=== PATIENT | male | born 1990 | race Caucasian/White ===

== ENCOUNTER 2024-09-17 10:02 | Outpatient (AMB) | payer OTHER, SELFPAY ==
--- NOTE | 2024-09-17 10:39 | AM.OFFWIN_ITS ---
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 - Pain initiated in the lower thigh and has progressively descended to the ankle and is now affecting the foot; associated with a sensation of tightness and swelling more prominent on the left side, decreasing the visibility of the ankle bones. - Complete absence of trauma or discolor ation noted; mobility of the ankle is unaffected. - Professional requirements involve exte nsive driving, limiting physical activity, and a recent drive to/from [place] which potentially contributes to venous stasis. - No systemic symptoms reported; denies shortness of breath or hemoptysis. - Denies hx of recent surgery or trauma, cancer, smoking, prior DVT or PE, long plane flights. - No significant family history of throm bosis discussed except a paternal history of myocardial infarction. - Initial suspicion led to a plan for ul trasound imaging to evaluate for deep vein thrombosis due to high risk associated with prolonged immobility. Physical Exam General: Cooperative, healthy appearing, comfortable, no acute distress and well developed Orientation: Patient oriented x3 Limitations: No limitations Head: Normal to inspection Ears: Hearing grossly normal bilaterally Nose: Normal external nose present Face and sinus: Normal facial exam Eyes: Appearance normal, both eyes and all related structures Neck: Normal visual inspection and Yes full ROM Respiratory: Normal respiratory effort and able to speak in complete sentences. Clear to auscultation bilaterally Cardiovascular: Regular rate and rhythm. Normal S1 and S2 Skin: No rashes or lesions noted, no discoloration Neuro: Patient oriented x3 Extremities: Left ankle slightl edema,negative Homans left leg, normal to inspection, full ROM left leg, right leg normal to inspection and full rOM PFSH Social History Patient Tobacco Use Status: Never used Tobacco Review of Systems Const All systems reviewed & are unremarkable except as noted in HPI and below Physical Exam Vital Signs: Last Vital Signs Temp 98.1 F 09/17/24 10:40 Pulse 82 09/17/24 10:40 BP 138/92 H 09/17/24 10:40 Pulse Ox 98 09/17/24 10:40 Oxygen Delivery Method Room Air 09/17/24 10:40 BMI result Body Mass Index 31.9 Assessment & Plan Assessment & Plan (1) Leg pain, left: Code(s): M79.605 - Pain in left leg Plan: Plan The management plan primarily emphasizes diagnosing a possible deep vein thrombosis by obtaining an urgent ultrasound of the affected limb. The examination will provide crucial information to either confirm or exclude the presence of a thrombus considering the patient's prolonged sitting intervals and reported symptoms. Should the ultrasound verify a thrombus, anticoagulant therapy might be initiated. Immediate intervention hinges on initial test results and subsequent consultations if DVT is diagnosed. Furthermore, patient education regarding potential risks associated with prolonged immobilization derived from occupational demands was implicitly addressed through the chosen imaging strategy. Ultrasound is negative for DVT, recommended if swelling continues over the next 3-4 weeks, he should follow up with his PCP. Slight chance he may have twisted his ankle without realizing it and he just needs some more time to recover, recommended rest and ice and ibuprofen. Patient was informed and verbally consented to the use of an ambient scribe for clinic note documentation during this visit. Orders: Orders US venous duplex LE LT Today M79.605 - Pain in left leg Coding Level of Care Code Est Pt Level 5 (51902) Diagnoses Leg pain, left M79.605
[2024-09-17 10:40] VITALS: BP 138/92; PULSE 82; TEMP 36.7; O2SAT 98; BMI 31.9
== END 2024-09-17 11:32 | disposition home or self-care (01) ==
PROVIDERS: Visit Provider Physician Assistant
DX: M79.605 Pain in left leg (principal)

== ENCOUNTER 2024-09-17 10:55 | Outpatient (REF) | payer OTHER, SELFPAY ==
--- NOTE | ~2024-09-17 | US_ITS ---
EXAMINATION: US LOWER EXTREMITY VEINS LIMITED FOLLOW UP LEFT HISTORY: M79.605 - Pain in left leg - r/o dvt COMPARISON: There are no prior studies for comparison. TECHNIQUE: Duplex and color Doppler sonographic examination of the deep venous system of the left lower extremity was performed. FINDINGS: The common femoral, superficial femoral, and popliteal veins are patent demonstrating normal compressibility, spontaneous flow, and augmentation. There is a normal color and spectral Doppler waveform appearance of the visualized deep venous system above the knee. The posterior tibial and peroneal veins are patent. US/US venous duplex LE LT IMPRESSION: No evidence of acute DVT in the left lower extremity. Electronically signed by: Wong Blackman MD 09/17/2024 11:29 AM [facility]
== END 2024-09-17 10:56 | disposition home or self-care (01) ==
LOC: HO.HMGCX 10:55
PROVIDERS: PCP Family Medicine; Visit Provider Physician Assistant
DX: M79.605 Pain in left leg (principal); M79.89 Other specified soft tissue disorders
CPT/HCPCS: 93971

== ENCOUNTER → 2024-09-17 11:03 | Outpatient (BNV) | payer OTHER, SELFPAY | PROVIDERS: PCP Family Medicine; Visit Provider Radiology Diagnostic Radiology | DX: M79.605 Pain in left leg (principal) | CPT/HCPCS: 93971 ==

== ENCOUNTER 2025-02-28 10:57 | Outpatient (AMB) | payer OTHER, SELFPAY ==
--- NOTE | 2025-02-28 11:15 | A.OFFPC_ITS ---
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 ?? Prior PCP:? Rachel Last office visit/CPE:?8 yrs Acute issue(s):? Recent?ED?visit?for?chest?pain. Ruled?out?for?ACS. Did?find?significant?anemia?with?hemoglobin?8.9. Had?had?recent?influenza?and?chest?x-ray?showed?possible?lingular?pneumonia vs scarring. Hemmorhoids - bleedig ?? PMHx:??Influenza, pneumonia, Anemia, Hemmorhoids - have bled in past. Partial Pneumothorax. SurgHx:?Appendectomy FHx:? dad: CAD & [place] age 60HTN, HLD. Brother: Anemia, HLD. Mom: Healthy. Uncle: Prostate CA SocHx:? 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 1. Little interest or pleasure in doing things: not at all 2. Feeling down, depressed, or hopeless: not at all 3. Trouble falling or staying asleep, or sleeping too much: not at all 4. Feeling tired or having little energy: several days 5. Poor appetite or overeating: several days 6. Feeling bad about yourself - or that you are a failure or have let yourself or your family down: not at all 7. Trouble concentrating on things, such as reading the newspaper or watching television: not at all 8. Moving or speaking so slowly that other people could have noticed. Or the opposite - being so fidgety or restless that you have been moving around a lot more than usual: not at all 9. Thoughts that you would be better off or of hurting yourself in some way: not at all Total score: 2 Depression Screening Interpretation: Negative Depression Screening Done: Yes 49780 - PHQ-9 Billing: Yes Source: Developed by Drs. Wong Davidson, Bernadette Kelly, Maximilian Gonzalez and colleagues, with an educational suman from [employer]. Thrive Questionnaire Date Thrive assessed: 02/28/25 I am a: Patient What is your living situation today?: I have a steady place to live Within the past 12 months, did the food you bought not last and you didn't have the money to get more?: Never true Within the past 12 months, did you worry whether your food would run out before you got money to buy more?: Never true Do you have trouble paying for medicines?: No Do you have trouble getting transportation to medical appointments?: No Do you have trouble paying your heating and electricity bill?: No Do you have trouble taking care of your child, family member or friend?: No Do you have trouble with day-to-day activities such as bathing, preparing meals, shopping, managing finances, etc.?: No Are you currently unemployed and looking for a job?: No Are you interested in more education?: Yes Please select the resources that you would like help with: None Currently or been in a relationship where the following occur: No concerns reported THRIVE Score: 0 AUDIT C Alcohol Use Questionnaire (AUDIT-C) 1. How often do you have a drink containing alcohol?: Monthly or less 2. How many drinks containing alcohol do you have on a typical day when you are drinking?: 1 or 2 3. How often do you have six or more drinks on one occasion?: Never Total Score: 1 Score Reviewed/Action Taken: Yes SHERRY-7 AMB Questionnaire SHERRY-7 Date SHERRY - 7 assessed: 02/28/25 Feeling nervous, anxious, or on edge: 1 = Several days Not being able to stop or control worryin = Several days Worrying too much about different things: 1 = Several days Trouble relaxin = Not at all Being so restless that it is hard to sit still: 0 = Not at all Becoming easily annoyed or irritable: 0 = Not at all Feeling afraid as if something awful might happen: 0 = Not at all Total SHERRY-7 score (0-4 normal; 5-9 mild; 10-14 moderate; 15-21 severe): 3 Source: Developed by Drs. Wong Davidson, Bernadette Kelly, Maximilian Gonzalez and colleagues, with an educational suman from [employer]. SHERRY-7 Assessment Billing SHERRY-7 Assessment Tool: SHERRY-7 Assessment 68060 Review of Systems Const Denies chills, Denies fatigue, Denies fever(s), Denies headache(s) and Denies weakness ENT Denies dizziness and Denies headache(s) Card Denies chest pain, Denies lightheadedness, Denies dyspnea and Denies other (Palp itations) Resp Denies cough, Denies dyspnea, Denies wheezing and Denies other ( shortness of breath) Musc Denies numbness and Denies tingling Neuro Denies dizziness, Denies headache(s), Denies numbness, Denies tingling, Denies paresthesias and Denies weakness Psych Denies anxiety and Denies depression Endo Denies fatigue Aller/Immun Denies wheezing Physical exam (Primary Care) Vital Signs: Last Vital Signs Temp 98.3 F 02/28/25 11:24 Pulse 78 02/28/25 11:24 Resp 14 02/28/25 11:24 BP 120/80 02/28/25 11:24 Pulse Ox 96 02/28/25 11:24 Oxygen Delivery Method Room Air 02/28/25 11:24 BMI result Body Mass Index 31.0 Tobacco/Smoking Status: Tobacco use Status Tobacco use date assessed 02/28/25 02/28/25 11:23 Patient Tobacco Use Status Never used Tobacco 02/28/25 11:23 e-Cigarette/Vaping Use Never Used 02/28/25 11:23 PHQ-9: PHQ-9 Score PHQ-9: Total score 2 02/28/25 11:23 Depression Screening Interpretation: Negative Thrive Assessment: Date of Thrive Assessment Date Thrive assessed 02/28/25 02/28/25 11:23 Currently or been in a relationship where the following occur: No concerns reported Const General: no acute distress and well developed Nutritional Appearance: well nourished Orientation/consciousness: patient oriented x3 HENMT Head: Yes normocephalic and Yes atraumatic Eyes General: appearance normal, both eyes and all related structures Pupils: Equal, round and reactive pupils present EOM: EOMs intact bilaterally Resp Effort & Inspection: normal respiratory effort Auscultation: clear to auscultation bilaterally Cardio Rate: regular rate Rhythm: regular rhythm Heart sounds: S1 normal heart sound present, S2 normal heart sound present, no gallops, no murmurs and no rubs Neuro General: patient oriented x3 and gait normal Cranial nerves: Yes Equal, round and reactive pupils present Psych Affect: normal affect Coding Level of Care Code New Pt Level 3 (18711) Diagnoses Anemia D64.9 Chest pain R07.9 Abnormal chest x-ray R93.89 Hemorrhoids K64.9 Family history of coronary artery disease Z82.49 Laboratory exam ordered as part of routine general medical examination Z00.00 Additional Codes SHERRY-7 Assessment Billing - SHERRY-7 Assessment Tool: SHERRY-7 Assessment 15662 ([id number]) PHQ-9 - 06351 - PHQ-9 Billing: Yes ([id number]) Assessment & Plan Assessment & Plan (1) Anemia: Code(s): D64.9 - Anemia, unspecified Category: Medical Plan: Anemia?found?at?ED?last?month?with?hemoglobin?8.9 Recheck?complete?blood?count?as?well?as iron?levels (2) Chest pain: Code(s): R07.9 - Chest pain, unspecified Category: Medical Plan: This?has?resolved (3) Abnormal chest x-ray: Code(s): R93.89 - Abnormal findings on diagnostic imaging of other specified body structures Category: Medical Plan: Patient?had?chest?discomfort?with x- ray?showing?scar?verses?small?lingular?pneumonia at?ED?1?month?ago. No?abnormal?lung?sounds?today?and?patient?has?no?discomfort. (4) Hemorrhoids: Code(s): K64.9 - Unspecified hemorrhoids Category: Medical Plan: Hemorrhoids?which?lead?and?may?be?contributing?to?anemia [facility]gastroenterology?and?[place],?per?patient?request (5) Family history of coronary artery disease: Code(s): Z82.49 - Family history of ischemic heart disease and other diseases of the circulatory system Category: Medical Plan: Will Monitor BP & Lipids (6) Laboratory exam ordered as part of routine general medical examination: Code(s): Z00.00 - Encounter for general adult medical examination without abnormal findings Category: Medical Plan: Check labs Orders: Orders Comprehensive [place]. Panel Fast Today Z00.00 - Encounter for general adult medical examination without abnormal findings Lipid Panel Today Z00.00 - Encounter for general adult medical examination without abnormal findings UA CC w/rflx Micro + Cult Today Z00.00 - Encounter for general adult medical examination without abnormal findings Vitamin B12 and Folate Today E53.8 - Deficiency of other specified B group vitamins IRON PROFILE Today D64.9 - Anemia, unspecified Complete Blood Count Auto Diff Today Z00.00 - Encounter for general adult medical examination without abnormal findings TSH reflex Free T4 Today Z00.00 - Encounter for general adult medical examination without abnormal findings Microalbumin, Random (w Creat) Today I10 - Essential (primary) hypertension Reticulocyte Count Today D64.9 - Anemia, unspecified Ferritin Today D64.9 - Anemia, unspecified H pylori Ag Stool Today D64.9 - Anemia, unspecified, Z20.09 - Contact with and (suspected) exposure to other intestinal infectious diseases Referrals Gastroenterology Referral D64.9 - Anemia, unspecified, K64.9 - Unspecified hemorrhoids
[2025-02-28 11:24] VITALS: BP 120/80; PULSE 78; RESP 14; TEMP 36.8; O2SAT 96; BMI 31.0
== END 2025-02-28 12:05 | disposition home or self-care (01) ==
LOC: HO.HMCFM 10:58
PROVIDERS: PCP Family Medicine; Visit Provider Family Medicine
DX: D64.9 Anemia, unspecified (principal); R07.9 Chest pain, unspecified; R93.89 Abnormal findings on diagnostic imaging of other specified body structures; K64.9 Unspecified hemorrhoids; Z82.49 Family history of ischemic heart disease and other diseases of the circulatory system; Z00.00 Encounter for general adult medical examination without abnormal findings

== ENCOUNTER → 2025-02-28 10:57 | Outpatient (BNVA) | payer OTHER, SELFPAY | PROVIDERS: PCP Family Medicine; Visit Provider Family Medicine | DX: Z13.89 Encounter for screening for other disorder (principal) ==

== ENCOUNTER 2025-02-28 11:55 | Outpatient (REF) | payer OTHER, SELFPAY ==
[2025-02-28 14:35] LABS: MANUAL DIFF FLAG NO
[2025-02-28 14:38] LABS: Basophils Percent Auto 0.6 % (0-2); Eosinophils Absolute Auto 0.1 X10*3/uL (0.0-0.4); Eosinophils Percent Auto 1.7 % (0-4); Hematocrit 34.7 % (42.0-52.0); Hemoglobin 10.2 g/dl (14.0-18.0); Imm Gran Abs Auto 0.01 X10*3/uL (0.00-0.03); Imm Gran Pct Auto 0.2 % (0.0-0.4); Immature Retic Fraction 23.3 % (2.3-13.4); Lymphocytes Absolute Auto 1.7 X10*3/uL (1.2-4.9); Lymphocytes Percent Auto 35.8 % (20-40); Mean Corpuscular HGB Conc 29.4 g/dl (31.0-36.0); Mean Corpuscular Hemoglobin 20.2 pg (27.0-33.0); Mean Corpuscular Volume 68.6 fL (80.0-98.0); Mean Platelet Volume 10.1 fL (9.4-12.4); Monocytes Absolute Auto 0.3 X10*3/uL (0.1-1.2); Monocytes Percent Auto 6.7 % (2-11); Neutrophils Absolute Auto 2.6 x10*3/uL (2.0-8.3); Platelet Count 216 X10*3/uL (160-400); Red Blood Count 5.06 X10*6/uL (4.60-5.80); Red Cell Distribution Width 19.8 % (11.0-16.0); Retic HGB Equivalent 19.6 pg (30.0-35.0); Reticulocyte Percent 1.5 % (0.5-1.8); Reticulocytes Absolute 0.076 X10*6/uL (0.026-0.095); White Blood Count 4.8 X10*3/uL (4.8-10.8)
[2025-02-28 14:48] LABS: Appearance Urine Clear; Color Urine Yellow; Glucose Urine UA Negative (Negative); Leukocyte Esterase Urine Negative (Negative); Nitrite Urine Negative (Negative); Urine Blood Negative (Negative); Urine Ketones Negative (Negative); Urine Protein Negative (Neg-Trace)
[2025-02-28 15:02] LABS: Alanine Aminotransferase 26 U/L (0-40); Albumin Level 4.5 g/dL (3.5-5.0); Alkaline Phosphatase 66 U/L (39-117); Anion Gap 10 (12-20); Aspartate Amino Transferase 24 U/L (5-37); Bilirubin Total 0.3 mg/dL (0.0-1.0); Blood Urea Nitrogen 12 mg/dL (9-16); Calcium 9.4 mg/dL (8.4-10.2); Carbon Dioxide 24 mmol/L (22-29); Chloride 109 mmol/L (96-108); Cholesterol 157 mg/dL (<200); Estimated Glomerular Filt Rate > 60; Glucose Fasting 91 mg/dL (60-99); HDL Cholesterol 35 mg/dL (>40); Iron 15 mcg/dL (45-160); LDL Cholesterol Calculated 105 mg/dL (<100); Percent Iron Saturation 4 % (15-50); Potassium 4.5 mmol/L (3.3-5.1); Sodium 138 mmol/L (135-145); Total Iron Binding Capacity 367 mcg/dL (228-428); Total Protein 6.9 g/dL (6.5-8.0); Triglycerides 87 mg/dL (<150); Unsaturated Iron Binding 352 ug/dL
[2025-02-28 15:20] LABS: Ferritin 9 ng/mL (20-250); TSH reflex Free T4 1.91 uIU/mL (0.32-4.0)
[2025-02-28 15:28] LABS: Folate 14.3 ng/mL (> or = 4.0); Vitamin B12 808 pg/mL (200-900)
[2025-02-28 15:44] LABS: Microalbum/Creatinine Ratio Ur 3.1 ug/mg cr (<30)
== END 2025-02-28 11:56 | disposition home or self-care (01) ==
LOC: HO.WFDLDS 11:55
PROVIDERS: Visit Provider Family Medicine
DX: D64.9 Anemia, unspecified (principal); E53.8 Deficiency of other specified B group vitamins; I10 Essential (primary) hypertension; R07.9 Chest pain, unspecified; R93.89 Abnormal findings on diagnostic imaging of other specified body structures; K64.9 Unspecified hemorrhoids; Z82.49 Family history of ischemic heart disease and other diseases of the circulatory system
CPT/HCPCS: 36415; 80053; 80061; 81003; 82043; 82570; 82607; 82728; 82746; 83540; 84443; 85025; 85045; 96127

== ENCOUNTER 2025-06-12 13:53 | Outpatient (AMB) | payer OTHER, SELFPAY ==
--- NOTE | 2025-06-12 13:57 | MHC.PC.OV ---
Vital Signs 06/12/25 14:06 Height 6 ft 3 in Weight 248 lb BMI 31.0 BP 142/87 H Blood Pressure Location Rt brachial Position Sitting Respiration 16 Pulse 78 Pulse Source Pulse Oximeter Temp 97.8 F Temp Source Oral Pulse Oximetry (%) 96 Oxygen Delivery Method Room Air Intake Visit Reasons: CPE Intake Note: patient here for CPE Telecom Coordinator Required: No Allergies No Known Allergies Allergy (Verified 06/12/25 14:05) Medication List - Last Reconciled 06/12/25 by Mirza Balderas MD ferrous sulfate 325 mg PO DAILY 30 days Tobacco use date assessed: 06/12/25 Dental Screening Dental Screen Date: 06/12/25 Did you have a dental visit in the last 12 months?: Yes Did you have a dental problem in the last 6 months where you did not have access to dental care?: No Was dental information given to patient?: Patient has dentist HPI CPE HPI Details 35 y/o male presents for a CPE with f/u labs. Labs drawn 02/28/25. Reviewed labs with pt. Anemia. Triglycerides 87. TC 157. LDL 105. HDL low at 35. Ferritin level 9 ng/mL. Iron level 15 mcg/dL. BP today 142/87, 78p. Notes strong FHx of CAD. 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 1. Little interest or pleasure in doing things: not at all 2. Feeling down, depressed, or hopeless: not at all 3. Trouble falling or staying asleep, or sleeping too much: not at all 4. Feeling tired or having little energy: not at all 5. Poor appetite or overeating: not at all 6. Feeling bad about yourself - or that you are a failure or have let yourself or your family down: not at all 7. Trouble concentrating on things, such as reading the newspaper or watching television: not at all 8. Moving or speaking so slowly that other people could have noticed. Or the opposite - being so fidgety or restless that you have been moving around a lot more than usual: not at all 9. Thoughts that you would be better off or of hurting yourself in some way: not at all Total score: 0 Depression Screening Interpretation: Negative Depression Screening Done: Yes 00405 - PHQ-9 Billing: Yes Source: Developed by Drs. Wong Davidson, Bernadette Kelly, Maximilian Gonzalez and colleagues, with an educational suman from [employer]. Thrive Questionnaire Date Thrive assessed: 06/12/25 I am a: Patient What is your living situation today?: I have a steady place to live Within the past 12 months, did the food you bought not last and you didn't have the money to get more?: Never true Within the past 12 months, did you worry whether your food would run out before you got money to buy more?: Never true Do you have trouble paying for medicines?: No Do you have trouble getting transportation to medical appointments?: No Do you have trouble paying your heating and electricity bill?: No Do you have trouble taking care of your child, family member or friend?: No Do you have trouble with day-to-day activities such as bathing, preparing meals, shopping, managing finances, etc.?: No Are you currently unemployed and looking for a job?: No Are you interested in more education?: No Please select the resources that you would like help with: None Currently or been in a relationship where the following occur: No concerns reported THRIVE Score: 0 AUDIT C Alcohol Use Questionnaire (AUDIT-C) 1. How often do you have a drink containing alcohol?: Monthly or less 2. How many drinks containing alcohol do you have on a typical day when you are drinking?: 1 or 2 3. How often do you have six or more drinks on one occasion?: Never Total Score: 1 Score Reviewed/Action Taken: Yes SHERRY-7 AMB Questionnaire SHERRY-7 Date SHERRY - 7 assessed: 06/12/25 Feeling nervous, anxious, or on edge: 0 = Not at all Not being able to stop or control worryin = Not at all Worrying too much about different things: 0 = Not at all Trouble relaxin = Not at all Being so restless that it is hard to sit still: 0 = Not at all Becoming easily annoyed or irritable: 0 = Not at all Feeling afraid as if something awful might happen: 0 = Not at all Total SHERRY-7 score (0-4 normal; 5-9 mild; 10-14 moderate; 15-21 severe): 0 Source: Developed by Drs. Wong Davidson, Bernadette Kelly, Maximilian Gonzalez and colleagues, with an educational suman from [employer]. SHERRY-7 Assessment Billing SHERRY-7 Assessment Tool: SHERRY-7 Assessment 83965 Review of Systems Const Denies chills, Denies fatigue, Denies fever(s), Denies headache(s) and Denies weakness Eyes Denies change in vision ENT Denies dizziness, Denies headache(s), Denies hearing loss, Denies nasal congestion, Denies sinus pain, Denies sinus pressure and Denies sore throat Card Denies chest pain, Denies lightheadedness, Denies dyspnea and Denies other (palpitations) Resp Denies cough, Denies dyspnea and Denies wheezing GI Denies abdominal pain, Denies melena, Denies hematochezia, Denies change in bowel habits, Denies dyspepsia and Denies nausea Denies hematuria and Denies dysuria Musc Denies abnormal gait, Denies myalgias, Denies arthralgias, Denies numbness and Denies tingling Skin/Breast Denies rash, Denies unusual bruising and Denies wounds Neuro Denies abnormal gait, Denies dizziness, Denies headache(s), Denies memory loss, Denies numbness, Denies Sensory deficit (Neuro), Denies tingling and Denies weakness Psych Denies anxiety, Denies depression and Denies memory loss Endo Denies cold intolerance, Denies fatigue, Denies heat intolerance, Denies polydipsia and Denies polyuria [place]win/Lymph Denies easy bleeding and Denies easy bruising Aller/Immun Denies wheezing Physical exam (Primary Care) Vital Signs: Last Vital Signs Temp 97.8 F 06/12/25 14:06 Pulse 78 06/12/25 14:06 Resp 16 06/12/25 14:06 BP 142/87 H 06/12/25 14:06 Pulse Ox 96 06/12/25 14:06 Oxygen Delivery Method Room Air 06/12/25 14:06 BMI result Body Mass Index 31.0 Tobacco/Smoking Status: Tobacco use Status Tobacco use date assessed 06/12/25 06/12/25 14:11 Patient Tobacco Use Status Never used Tobacco 06/12/25 13:58 e-Cigarette/Vaping Use Never Used 06/12/25 13:58 PHQ-9: PHQ-9 Score PHQ-9: Total score 0 06/12/25 14:29 Depression Screening Interpretation: Negative Thrive Assessment: Date of Thrive Assessment Date Thrive assessed 06/12/25 06/12/25 14:11 Currently or been in a relationship where the following occur: No concerns reported Const General: no acute distress, well developed, alert and awake Nutritional Appearance: well nourished Orientation/consciousness: patient oriented x3 HENMT Head: Yes normocephalic and Yes atraumatic Ears: hearing grossly normal bilaterally and TM's normal bilaterally General nose exam: Normal external nose present and Normal nares present Mouth: Normal oral and palatal mucosa present and moist mucous membranes Teeth and gingiva: dentition normal Throat: Yes posterior oropharynx normal Eyes General: appearance normal, both eyes and all related structures Pupils: Equal, round and reactive pupils present and Pupil accommodation reflex normal EOM: EOMs intact bilaterally Neck Neck: Yes normal visual inspection, Yes no lymphadenopathy and Yes trachea midline Thyroid: Thyroid normal Carotids: no bruits Lymphatic: no lymphadenopathy noted Chest Chest palpation & inspection: normal inspection of the chest Resp Effort & Inspection: normal respiratory effort Auscultation: clear to auscultation bilaterally Cardio Rate: regular rate Rhythm: regular rhythm Heart sounds: S1 normal heart sound present, S2 normal heart sound present, no gallops, no murmurs and no rubs Bruits: no abdominal aortic bruits and no carotid bruits GI Palpation (GI): No Abdominal aortic bruit present, Soft to palpation, nontender, No hepatosplenomegaly present and No Rebound tenderness present Auscultation: normal bowel sounds General: Yes no CVA tenderness Back/Spine/Pelvis Back: no CVA tenderness Cervical Spine: cervical ROM normal and No Cervical spine tenderness Thoracic/Lumbar Spine: thoraco-lumbar ROM normal, No pain with thoraco-lumbar ROM, No thoracic spinal tenderness and No lumbar spinal tenderness Skin Lesions: no lesions Rashes: no rashes Trauma: no lacerations or abrasions Wounds: no wounds Nails: normal Neuro General: patient oriented x3 Cranial nerves: Yes Equal, round and reactive pupils present Cognition (Neuro): normal cognition Gait exam (Neuro): Normal gait present Motor exam (neuro): 5/5 motor strength present throughout Sensory Exam: No Sensory deficit (Neuro) Deep tendon reflexes (DTR's): Right patellar reflex intensity grade: 2+ and Left patellar reflex intensity grade: 2+ Extrem General: Yes normal to inspection and No edema Psych Appearance: grossly normal Affect: normal affect Attitude: cooperative Thought process: Normal thought process present Coding Level of Care Code Est Pt Prev Care [id number]([id number]) Diagnoses Adult general medical exam Z00.00 Anemia D64.9 Acid reflux K21.9 Family history of coronary artery disease Z82.49 HLD (hyperlipidemia) E78.5 Elevated blood pressure reading R03.0 Additional Codes SHERRY-7 Assessment Billing - SHERRY-7 Assessment Tool: SHERRY-7 Assessment 20375 ([id number]) PHQ-9 - 02752 - PHQ-9 Billing: Yes ([id number]) Assessment & Plan Assessment & Plan (1) Adult general medical exam: Code(s): Z00.00 - Encounter for general adult medical examination without abnormal findings Category: Medical Plan: 35-year-old male presents for complete physical exam Exam within normal limits Encouraged healthy diet with active lifestyle and plenty of exercise (2) Anemia: Code(s): D64.9 - Anemia, unspecified Category: Medical Plan: Iron-deficiency anemia secondary to GI bleeding likely at anal verge and hemorrhoids Patient has upcoming colonoscopy with gastroenterology. He has been on iron and hemoglobin has increased from 10.2 to 13.1. He will continue iron Follow-up with Gastroenterology (3) Acid reflux: Code(s): K21.9 - Gastro-esophageal reflux disease without esophagitis Category: Medical Plan: Avoid trigger foods Avoid over filling were eating too close to bedtime Symptoms have been improving with weight loss-continue weight loss (4) Family history of coronary artery disease: Code(s): Z82.49 - Family history of ischemic heart disease and other diseases of the circulatory system Category: Medical (5) HLD (hyperlipidemia): Code(s): E78.5 - Hyperlipidemia, unspecified Category: Medical (6) Elevated blood pressure reading: Code(s): R03.0 - Elevated blood-pressure reading, without diagnosis of hypertension Category: Medical Plan Mild Hyperlipidemia with strong family history of coronary artery disease LDL cholesterol 105 and goal is less than 100. His HDL is low however. He notes that he has not been exercising much and I encouraged increasing exercise and activity Shift fats to [place] 3 fatty acids Will recheck with next blood draw Blood pressure is elevated today. Will recheck at next visit and if still elevated discuss medication Orders: Orders Comprehensive [place]. Panel Fast Today Z00.00 - Encounter for general adult medical examination without abnormal findings Lipid Panel Today E78.5 - Hyperlipidemia, unspecified, Z00.00 - Encounter for general adult medical examination without abnormal findings Complete Blood Count Auto Diff Today D64.9 - Anemia, unspecified, Z00.00 - Encounter for general adult medical examination without abnormal findings IRON PROFILE Today D64.9 - Anemia, unspecified
[2025-06-12 14:06] VITALS: BP 142/87; PULSE 78; RESP 16; TEMP 36.6; O2SAT 96; BMI 31.0
--- OUTSIDE RECORDS SUMMARY | 2025-06-12 15:32 | XMS_ITS ---
Author Name [facility] Organization Unknown Care Team Organization Name Specialty Phone Email Start Date End Da irena [facility] NADEGE [facility]NA Primary Care 07/19/2022 04/29/20 24
== END 2025-06-12 14:46 | disposition home or self-care (01) ==
LOC: HO.HMCFM 13:54
PROVIDERS: PCP Family Medicine; Visit Provider Family Medicine
DX: Z00.00 Encounter for general adult medical examination without abnormal findings (principal); D64.9 Anemia, unspecified; K21.9 Gastro-esophageal reflux disease without esophagitis; Z82.49 Family history of ischemic heart disease and other diseases of the circulatory system; E78.5 Hyperlipidemia, unspecified; R03.0 Elevated blood-pressure reading, without diagnosis of hypertension

== ENCOUNTER → 2025-06-12 13:53 | Outpatient (BNVA) | payer OTHER, SELFPAY | PROVIDERS: PCP Family Medicine; Visit Provider Family Medicine | DX: Z00.00 Encounter for general adult medical examination without abnormal findings (principal); D64.9 Anemia, unspecified; K21.9 Gastro-esophageal reflux disease without esophagitis; E78.5 Hyperlipidemia, unspecified; K64.9 Unspecified hemorrhoids; R03.0 Elevated blood-pressure reading, without diagnosis of hypertension; Z82.49 Family history of ischemic heart disease and other diseases of the circulatory system | CPT/HCPCS: 96127 ==